=== PATIENT | male | born 1970 | race Caucasian/White ===

== ENCOUNTER 2016-09-19 00:47 | Emergency (ER) | payer BC ==
[2016-09-19 00:53] VITALS: BP 110/67; PULSE 75; RESP 18; TEMP 97.1
[2016-09-19] MEDS ORDERED: RX INFO: IV CONTRAST WAS GIVEN 1 EACH MISC MISCELLANE PRN (01:06)
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
[2016-09-19 01:11] LABS: Glucose,Whole Blood 97 mg/dL (75-99)
[2016-09-19 01:19] LABS: Basophils # (A) 0.1 k/uL (0-0.2); Basophils % (A) 1 %; CH 33.3; CHCM 34.4; Eosinophils # (A) 0.6 k/uL (0-0.7); Eosinophils % (A) 4 %; HCT 43.7 % (39.0-53.0); HDW 2.44; Luc # (Auto) 0.22; Luc % (Auto) 1; Lymphocytes # (A) 2.4 k/uL (1.0-4.8); Lymphocytes % (A) 16 %; MCH 33.4 pg (25.0-35.0); MCHC 34.2 g/dL (31.0-37.0); MCV 97.6 fL (80.0-100.0); Mean Platelet Volume 7.1; Monocytes # (A) 0.8 k/uL (0-1.0); Monocytes % (A) 5 %; Neutrophils % (A) 72 %; RBC 4.48 m/uL (4.30-5.90); RDW 13.8 % (11.5-15.5); WBC 15.2 k/uL (3.8-10.6); WBC (Perox) 14.53
[2016-09-19 01:24] LABS: ALT 25 U/L (21-72); AST 35 U/L (17-59); Alkaline Phosphatase 68 U/L (38-126); Amylase 34 U/L (30-110); Anion Gap 14 mmol/L; Blood Urea Nitrogen 11 mg/dL (9-20); Calcium 9.3 mg/dL (8.4-10.2); Carbon Dioxide 21 mmol/L (22-30); Chloride 108 mmol/L (98-107); Glucose 90 mg/dL (74-99); Non-African American GFR(MDRD) >60 (>60 ml/min/1.73 sqM); Potassium 3.8 mmol/L (3.5-5.1); Sodium 143 mmol/L (137-145); Total Bilirubin 0.2 mg/dL (0.2-1.3); Total Protein 7.2 g/dL (6.3-8.2)
[2016-09-19 01:27] LABS: Partial Thromboplastin Time 23.5 sec (22.0-30.0); Prothrombin Time 10.2 sec (9.0-12.0)
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
[2016-09-19 01:37] LABS: Alcohol 159 mg/dL
[2016-09-19 01:44] LABS: Creatine Kinase MB 1.5 ng/mL (0.0-2.4); Troponin I <0.012 ng/mL (0.000-0.034)
[2016-09-19 01:45] LABS: Creatine Kinase 137 U/L (55-170)
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
[2016-09-19] MEDS ORDERED: KETOROLAC 60 MG/2 ML VIAL IVP STA (02:09)
[2016-09-19] MEDS ORDERED: ONDANSETRON 4 MG/2 ML VIAL IVP STA (02:09)
[2016-09-19] MEDS ORDERED: HYDROmorphone 1 MG/ML 1 ML SYRINGE IVP STA (02:09)
== END 2016-09-19 02:25 | disposition home or self-care (01) ==
LOC: EC 00:47
DX: S30.1XXA Contusion of abdominal wall, initial encounter (principal); S40.211A Abrasion of right shoulder, initial encounter; F10.129 Alcohol abuse with intoxication, unspecified; M54.2 Cervicalgia; M25.551 Pain in right hip; F17.200 Nicotine dependence, unspecified, uncomplicated; Z90.49 Acquired absence of other specified parts of digestive tract; V86.09XA Driver of other special all-terrain or other off-road motor vehicle injured in traffic accident, initial encounter
CPT/HCPCS: 36415; 93005; 86900; 86901; 80053; 82150; 82550; 82553; 83605; 83690; 84484; 85025; 85610; 85730; 86850; 80320; 71010; 72170; 72125; 70450; 71260; 74177; 99284; Q9967

== ENCOUNTER 2016-09-22 04:33 | Inpatient (IN) | payer BC ==
[2016-09-22] MEDS ORDERED: RX INFO: IV CONTRAST WAS GIVEN 1 EACH MISC MISCELLANE PRN (04:51)
[2016-09-22] MEDS ORDERED: HYDROmorphone 1 MG/ML 1 ML SYRINGE IVP STA ×2 (04:51→07:08)
[2016-09-22] MEDS ORDERED: ONDANSETRON 4 MG/2 ML VIAL IVP STA (04:51)
[2016-09-22] MEDS ORDERED: SODIUM CHLORIDE 0.9% 1,000 ML IV STA (04:51)
[2016-09-22] MEDS ORDERED: SODIUM CHLORIDE 0.9% 500 ML IV STA (04:51)
[2016-09-22 05:28] LABS: Basophils # (A) 0.1 k/uL (0-0.2); Basophils % (A) 1 %; CH 32.9; CHCM 34.5; Eosinophils # (A) 0.6 k/uL (0-0.7); Eosinophils % (A) 7 %; HCT 39.9 % (39.0-53.0); HDW 2.42; HGB 13.9 gm/dL (13.0-17.5); Luc # (Auto) 0.18; Luc % (Auto) 2; Lymphocytes # (A) 2.7 k/uL (1.0-4.8); Lymphocytes % (A) 29 %; MCH 33.2 pg (25.0-35.0); MCHC 34.7 g/dL (31.0-37.0); MCV 95.7 fL (80.0-100.0); Mean Platelet Volume 6.5; Monocytes # (A) 0.6 k/uL (0-1.0); Monocytes % (A) 6 %; Neutrophils # (A) 5.3 k/uL (1.3-7.7); Neutrophils % (A) 56 %; RBC 4.17 m/uL (4.30-5.90); RDW 13.1 % (11.5-15.5); WBC 9.4 k/uL (3.8-10.6); WBC (Perox) 9.66
[2016-09-22 05:34] LABS: ALT 27 U/L (21-72); AST 24 U/L (17-59); Alkaline Phosphatase 76 U/L (38-126); Amylase <30 U/L (30-110); Anion Gap 13 mmol/L; Blood Urea Nitrogen 13 mg/dL (9-20); Calcium 8.8 mg/dL (8.4-10.2); Carbon Dioxide 18 mmol/L (22-30); Chloride 112 mmol/L (98-107); Glucose 71 mg/dL (74-99); Non-African American GFR(MDRD) >60 (>60 ml/min/1.73 sqM); Potassium 4.3 mmol/L (3.5-5.1); Sodium 143 mmol/L (137-145); Total Bilirubin 0.3 mg/dL (0.2-1.3); Total Protein 6.6 g/dL (6.3-8.2)
[2016-09-22] MEDS ORDERED: HYDROmorphone 1 MG/ML 1 ML SYRINGE IVP PRN ×2 (06:19→07:07)
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
[2016-09-22] MEDS ORDERED: KETOROLAC 30 MG/ML 1 ML VIAL IVP STA (06:58)
[2016-09-22] MEDS ORDERED: SODIUM CHLORIDE 0.9% 1,000 ML IV ONE (07:05)
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
[2016-09-22] MEDS ORDERED: fentaNYL (PF) 50 MCG/ML 2 ML AMP ONE (07:55)
[2016-09-22] MEDS ORDERED: LIDOCAINE 1% INJ 10MG/ML (20 ML MDV) ONE (07:55)
[2016-09-22] MEDS ORDERED: PROPOFOL 10 MG/ML 20 ML VIAL IV ONE (07:55)
[2016-09-22] MEDS ORDERED: IV FLUID CONTINUATION 1,000 ML IV ONE (07:55)
[2016-09-22] MEDS ORDERED: MIDAZOLAM 2 MG/2 ML VIAL ONE (07:55)
[2016-09-22] MEDS ORDERED: SUCCINYLCHOLINE CHLORIDE 100 MG/5 ML SYR IV ONE (07:55)
[2016-09-22] MEDS ORDERED: ONDANSETRON 4 MG/2 ML VIAL ONE (07:55)
[2016-09-22] MEDS ORDERED: LACTATED RINGERS 1,000 ML IV ONE (08:10)
[2016-09-22] MEDS ORDERED: SODIUM CHLORIDE 0.9% 50 ML with ceFAZolin 2,000 MG IV ONE ×2 (08:11)
[2016-09-22] MEDS ORDERED: ONDANSETRON 4 MG/2 ML VIAL IVP PRN (09:01)
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
--- NOTE | 2016-09-22 09:12 | P.DS ---
Providers Date of admission: 09/22/16 07:07 Expected date of discharge: 09/23/16 Attending physician: Patrica Clinton Primary care physician: Ravi Mccracken - Discharge Diagnosis(es) (1) Right flank hematoma Current Visit: Yes Status: Acute Hospital Course: 46 years old male presented with expanding right flank hematoma. Underwent surgical evacuation and closure. Patient did well in the postoperative period. Pain is well controlled. He is taking regular diet. Patient Condition at Discharge: Fair Plan - Discharge Summary New Discharge Prescriptions: New Docusate [Colace] 100 mg PO BID #30 capsule Hydrocodone/Acetaminophen [[place] 5-325] 1 each PO Q6HR PRN #10 tab PRN Reason: Pain No Action Sertraline [Zoloft] 50 mg PO DAILY Triamcinolone 0.1% Ointment [Kenalog] 1 applic TOPICAL BID Discharge Medication List Docusate [Colace] 100 mg PO BID #30 capsule 09/22/16 [Rx] Hydrocodone/Acetaminophen [[place] 5-325] 1 each PO Q6HR PRN #10 tab 09/22/16 [Rx] Sertraline [Zoloft] 50 mg PO DAILY 09/22/16 [History] Triamcinolone 0.1% Ointment [Kenalog] 1 applic TOPICAL BID 09/22/16 [History] Follow up Appointment(s)/Referral(s): Patrica Clinton MD [STAFF PHYSICIAN] - 10/01/16 Ravi Mccracken DO [Primary Care Provider] - 1-2 days Activity/Diet/Wound Care/Special Instructions: OK to shower . No soaking bath. No heavy lifting more than 10 lbs for 2 weeks post surgery. No driving while taking narcotics for pain. May use ice packs for local pain relief Take Motrin 400 mg po TID after meals if pain is not controlled Discharge Disposition: HOME SELF-CARE
[2016-09-22 09:47] VITALS: BMI 25.1
[2016-09-22] MEDS ORDERED: ACETAMINOPHEN TAB 325 MG TAB PO PRN (11:32)
[2016-09-22] MEDS: HYDROcodone/APAP 5-325MG 1 EACH TAB PO PRN ×3 (13:22→22:00)
[2016-09-22] MEDS: DOCUSATE 100 MG CAP PO SCH ×2 (13:26→19:57)
[2016-09-22 23:58] VITALS: RESP 16
[2016-09-23] MEDS ORDERED: PANTOPRAZOLE SODIUM 40 MG GRANULE PKT PO SCH (07:30)
[2016-09-23] MEDS: DOCUSATE 100 MG CAP PO SCH (08:13)
[2016-09-23 12:18] VITALS: BP 120/61; PULSE 91; TEMP 98
== END 2016-09-23 14:02 | disposition home or self-care (01) | DRG 580 ==
LOC: EC 04:33 → 3SUR 07:07
PROVIDERS: ADMIT Surgery; ATTEND Surgery
PROC: 0W3F0ZZ Control Bleeding in Abdominal Wall, Open Approach (ICD-10-PCS; 2016-09-22)
PROC: 0J980ZZ Drainage of Abdomen Subcutaneous Tissue and Fascia, Open Approach (ICD-10-PCS; principal; 2016-09-22 07:30)
DX: S30.1XXA Contusion of abdominal wall, initial encounter (principal); T80.818A Extravasation of other vesicant agent, initial encounter; F17.200 Nicotine dependence, unspecified, uncomplicated; R21 Rash and other nonspecific skin eruption; Z79.899 Other long term (current) drug therapy; Z90.49 Acquired absence of other specified parts of digestive tract; Z86.010 Personal history of colon polyps; V86.99XA Unspecified occupant of other special all-terrain or other off-road motor vehicle injured in nontraffic accident, initial encounter
CPT/HCPCS: 36415; 74177; 80053; 82150; 83605; 83690; 85025

== ENCOUNTER 2016-09-26 12:21 | Emergency (ER) | payer BC ==
[2016-09-26 12:35] VITALS: RESP 18
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
[2016-09-26] MEDS ORDERED: RX INFO: IV CONTRAST WAS GIVEN 1 EACH MISC MISCELLANE PRN (12:49)
[2016-09-26 13:11] LABS: Basophils % (A) 0 %; CH 33.4; CHCM 34.2; Eosinophils # (A) 1.1 k/uL (0-0.7); Eosinophils % (A) 14 %; HCT 40.2 % (39.0-53.0); HDW 2.56; HGB 13.7 gm/dL (13.0-17.5); Luc # (Auto) 0.09; Luc % (Auto) 1; Lymphocytes # (A) 1.1 k/uL (1.0-4.8); Lymphocytes % (A) 14 %; MCH 33.5 pg (25.0-35.0); MCHC 34.1 g/dL (31.0-37.0); MCV 98.3 fL (80.0-100.0); Mean Platelet Volume 7.3; Monocytes # (A) 0.4 k/uL (0-1.0); Monocytes % (A) 5 %; Neutrophils % (A) 65 %; RBC 4.09 m/uL (4.30-5.90); RDW 14.3 % (11.5-15.5); WBC 7.7 k/uL (3.8-10.6); WBC (Perox) 7.91
--- NOTE | 2016-09-26 13:49 | CT ---
EXAMINATION TYPE: CT abdomen w con DATE OF EXAM: 09/26/2016 COMPARISON: 09/22/2016 HISTORY: Patient complains of RUQ hematoma that was drained 4 days ago. Hematoma feels as if it is g rowing and refilling. CT DLP: 841 mGycm CONTRAST: CT scan of the abdomen is performed without Oral Contrast and with IV Contrast, patient injected wit h 100 mL of Omnipaque 300. FINDINGS: Subcutaneous right lateral flank hematoma is smaller in size and currently measures 6.8 x 2.1 x 8.9 c m versus 9.2 x 5.2 x 10.7 cm. In addition Hounsfield unit density values are within the range of norm al fluid without hyperdense component seen previously which indicated active hemorrhage at time of in itial presentation. LUNG BASES-: Mild dependent basilar atelectasis and trace effusions. LIVER/GB: Cholecystectomy clips noted. No space occupying hepatic lesion. Biliary tree is of zane l caliber. PANCREAS: No inflammation. No distinct mass. SPLEEN: No splenic enlargement. No lesion seen. ADRENALS: No nodule. No thickening. KIDNEYS/BLADDER: Malrotation left kidney. No hydronephrosis. No nephrolithiasis. Stable right renal cyst. Urinary bladder grossly unremarkable. BOWEL: Normal appendix. Normal bowel caliber. No inflammation. LYMPH NODES: No greater than 1cm abdominal or pelvic lymph nodes are appreciated. AORTA: No significant abnormality. OSSEOUS STRUCTURES: No significant abnormality is seen. OTHER: No significant additional abnormality is seen. IMPRESSION: 1. Persistent but smaller subcutaneous right lateral flank collection which may reflect interval deve lopment of seroma versus residual hematoma.
[2016-09-26 14:37] VITALS: BP 127/81; PULSE 67
[2016-09-26 14:56] VITALS: TEMP 98.3
== END 2016-09-26 14:56 | disposition home or self-care (01) ==
LOC: EC 12:21
DX: S30.1XXD Contusion of abdominal wall, subsequent encounter (principal); F17.200 Nicotine dependence, unspecified, uncomplicated; Z90.49 Acquired absence of other specified parts of digestive tract; Z79.891 Long term (current) use of opiate analgesic; Z79.1 Long term (current) use of non-steroidal anti-inflammatories (NSAID); Z98.890 Other specified postprocedural states; Z79.899 Other long term (current) drug therapy; Y93.89 Activity, other specified
CPT/HCPCS: 99283; 36415; 85025; 74160; Q9967

== ENCOUNTER 2020-09-18 05:57 | Emergency (ER) | payer BC, OTHER ==
[2020-09-18 06:04] VITALS: TEMP 98.2
[2020-09-18] MEDS ORDERED: SODIUM CHLORIDE 0.9% 1,000 ML IV STA (06:16)
[2020-09-18] MEDS ORDERED: KETOROLAC 15 MG/ML 1 ML VIAL IVP STA (06:16)
--- NOTE | 2020-09-18 06:32 | ED ---
General Adult HPI - General Chief complaint: Back Pain/Injury Stated complaint: Side Pain Time Seen by Provider: 09/18/20 06:10 Source: patient, family Mode of arrival: ambulatory Limitations: no limitations - History of Present Illness Initial comments: Patient is a 50-year-old male presenting to emergency Department with complaints of left flank pain been increasing over the past few days. He states he noticed that a little bit last week but then over the past 24 hours the pain has increased. Describes it as his left flank with some radiation towards the front. He denies history of kidney stones, no hematuria. He denies fevers or chills, no chest pain or shortness of breath. Does admit to some mild nausea but no vomiting, no diarrhea. He has no further complaints. - Related Data Home Medications Medication Instructions Recorded Confirmed Hydrocodone/Acetaminophen [[place] 1 tab PO HS 09/26/16 09/26/16 5-325] Ibuprofen [Motrin] 600 mg PO BID 09/26/16 09/26/16 diphenhydrAMINE [Benadryl] 50 mg PO BID 09/26/16 09/26/16 Previous Rx's Medication Instructions Recorded Lidocaine [Lidoderm 5% Patch] 1 patch TRANSDERM DAILY #5 patch 09/18/20 valACYclovir HCL [Valtrex] 1,000 mg PO Q8HR 7 Days #21 tab 09/18/20 Allergies Allergy/AdvReac Type Severity Reaction Status Date / Time No Known Allergies Allergy Verified 09/18/20 06:04 Review of Systems ROS Statement: Those systems with pertinent positive or pertinent negative responses have been documented in the HPI. ROS Other: All systems not noted in ROS Statement are negative. Past Medical History Past Medical History: GI Bleed, Skin Disorder Additional Past Medical History / Comment(s): RASH LOWER BACK PAST 6 MO EST, POSS ALLERGY TO COTTON, SEEING VEGETABLE SCULLION. HX COLON POLYPS. BLOOD IN STOOL IN PAST MONTH. History of Any Multi-Drug Resistant Organisms: None Reported Past Surgical History: Cholecystectomy Additional Past Surgical History / Comment(s): COLONOSCOPY Past Anesthesia/Blood Transfusion Reactions: No Reported Reaction Past Psychological History: No Psychological Hx Reported Smoking Status: Current every day smoker Past Alcohol Use History: Occasional Past Drug Use History: None Reported - Past Family History Mother Family Medical History: No Reported History General Exam - General Exam Comments Initial Comments: GENERAL: Patient is well-developed and well-nourished. Patient is nontoxic and in mild distress. HEAD: Atraumatic, normocephalic. EYES: Pupils equal round and reactive to light, extraocular movements intact, sclera anicteric, conjunctiva are normal. Eyelids were unremarkable. ENT: Nares patent, oropharynx clear without exudates. Moist mucous membranes. NECK: Normal range of motion, supple without lymphadenopathy or JVD. LUNGS: Unlabored respirations. Breath sounds clear to auscultation bilaterally and equal. No wheezes rales or rhonchi. HEART: Regular rate and rhythm without murmurs, rubs or gallops. ABDOMEN: Soft, nontender, normoactive bowel sounds. No guarding, no rebound. No masses appreciated. : Deferred MUSCULOSKELETAL: Normal extremities with adequate strength and normal range of motion, no pitting or edema. No clubbing or cyanosis. Mild tenderness to palpation of the left flank. NEUROLOGICAL: Patient is alert and oriented x 3. Motor and sensory are also intact. Normal speech, normal gait. PSYCH: Normal mood, normal affect. SKIN: Warm, Dry, normal turgor. Patient does have a mild macular, papular rash along the T7, T8 dermatome on the left side just near the left flank which does wrap around towards his front. Limitations: no limitations Course Vital Signs 09/18/20 09/18/20 05:59 07:34 Temperature 98.2 F Pulse Rate 70 66 Respiratory 20 18 Rate Blood Pressure 168/96 145/103 O2 Sat by Pulse 99 97 Oximetry Medical Decision Making - Medical Decision Making Patient is a 50-year-old male here with complaints of pain in his left flank pain increasing over the past week, worse over the past 24 hours. On physical e xam, he does have a rash along this area, along dermatome T7 to 8. I did evaluate him for possible kidney stone, he has no hematuria, his labs are within normal limits, CT shows no evidence for stone. I discussed with patient this is most likely shingles. I will start him on Valtrex, Lidoderm patches. He is stable for discharge. He'll follow up with his PCP. He is agreeable to this plan of care. Return parameters were discussed with him and he verbalized understanding. Case discussed with Dr. Felipe. - Lab Data Result diagrams: 09/18/20 06:19 09/18/20 06:19 Lab Results 09/18/20 09/18/20 09/18/20 Range/Units 06:19 06:19 06:19 WBC 7.7 (3.8-10.6) k/uL RBC 4.72 (4.30-5.90) m/uL Hgb 15.6 (13.0-17.5) gm/dL Hct 44.6 (39.0-53.0) % MCV 94.6 (80.0-100.0) fL MCH 33.0 (25.0-35.0) pg MCHC 34.9 (31.0-37.0) g/dL RDW 13.0 (11.5-15.5) % Plt Count 239 (150-450) k/uL MPV 7.0 Neutrophils % 55 % Lymphocytes % 28 % Monocytes % 5 % Eosinophils % 9 % Basophils % 1 % Neutrophils # 4.3 (1.3-7.7) k/uL Lymphocytes # 2.1 (1.0-4.8) k/uL Monocytes # 0.4 (0-1.0) k/uL Eosinophils # 0.7 (0-0.7) k/uL Basophils # 0.1 (0-0.2) k/uL Sodium 138 (137-145) mmol/L Potassium 4.3 (3.5-5.1) mmol/L Chloride 109 H (98-107) mmol/L Carbon Dioxide 24 (22-30) mmol/L Anion Gap 5 mmol/L BUN 13 (9-20) mg/dL Creatinine 0.84 (0.66-1.25) mg/dL Est GFR (CKD-EPI)AfAm >90 (>60 ml/min/1.73 sqM) Est GFR (CKD-EPI)NonAf >90 (>60 ml/min/1.73 sqM) Glucose 102 H (74-99) mg/dL Calcium 9.4 (8.4-10.2) mg/dL Total Bilirubin 0.3 (0.2-1.3) mg/dL AST 24 (17-59) U/L ALT 9 (4-49) U/L Alkaline Phosphatase 54 (38-126) U/L Total Protein 6.6 (6.3-8.2) g/dL Albumin 4.1 (3.5-5.0) g/dL Lipase 64 (23-300) U/L Urine Color Light Yellow Urine Appearance Clear (Clear) Urine pH 5.5 (5.0-8.0) Ur Specific [place] 1.010 (1.001-1.035) Urine Protein Negative (Negative) Urine Glucose (UA) Negative (Negative) Urine Ketones Negative (Negative) Urine Blood Negative (Negative) Urine Nitrite Negative (Negative) Urine Bilirubin Negative (Negative) Urine Urobilinogen <2.0 (<2.0) mg/dL Ur Leukocyte Esterase Negative (Negative) Disposition Clinical Impression: Shingles, Left flank pain Disposition: HOME SELF-CARE Condition: Stable Instructions (If sedation given, give patient instructions): Shingles (ED) Additional Instructions: Please return to the Emergency Department if symptoms worsen or any other concerns. Take medication as prescribed, use lidocaine patches as needed for discomfort, alternating between Tylenol and Motrin. May take Tylenol threes for more severe pain. Follow up with your PCP. Prescriptions: Lidocaine [Lidoderm 5% Patch] 1 patch TRANSDERM DAILY #5 patch valACYclovir HCL [Valtrex] 1,000 mg PO Q8HR 7 Days #21 tab Is patient prescribed a controlled substance at d/c from ED?: No Referrals: Nonstaff,Physician [Primary Care Provider] - 1-2 days Time of Disposition: 08:27
[2020-09-18 06:34] LABS: Basophils # (A) 0.1 k/uL (0-0.2); Basophils % (A) 1 %; Eosinophils # (A) 0.7 k/uL (0-0.7); Eosinophils % (A) 9 %; HCT 44.6 % (39.0-53.0); HGB 15.6 gm/dL (13.0-17.5); Lymphocytes # (A) 2.1 k/uL (1.0-4.8); Lymphocytes % (A) 28 %; MCHC 34.9 g/dL (31.0-37.0); MCV 94.6 fL (80.0-100.0); Monocytes # (A) 0.4 k/uL (0-1.0); Monocytes % (A) 5 %; Neutrophils # (A) 4.3 k/uL (1.3-7.7); Neutrophils % (A) 55 %; Platelet Count 239 k/uL (150-450); RBC 4.72 m/uL (4.30-5.90); WBC 7.7 k/uL (3.8-10.6)
[2020-09-18 06:36] LABS: Appearance,Urine Clear (Clear); Bilirubin,Urine Negative (Negative); Blood,Urine Negative (Negative); Color,Urine Light Yellow; Glucose,Urine (UA) Negative (Negative); Ketones,Urine Negative (Negative); Leukocyte Esterase,Urine Negative (Negative); Nitrite,Urine Negative (Negative); PH, Urine 5.5 (5.0-8.0); Protein,Urine Negative (Negative); Urobilinogen,Urine <2.0 mg/dL (<2.0)
[2020-09-18 06:48] LABS: ALT 9 U/L (4-49); AST 24 U/L (17-59); African American GFR (CKD) >90 (>60 ml/min/1.73 sqM); Albumin 4.1 g/dL (3.5-5.0); Alkaline Phosphatase 54 U/L (38-126); Anion Gap 5 mmol/L; Blood Urea Nitrogen 13 mg/dL (9-20); Calcium 9.4 mg/dL (8.4-10.2); Carbon Dioxide 24 mmol/L (22-30); Chloride 109 mmol/L (98-107); Glucose 102 mg/dL (74-99); Lipase 64 U/L (23-300); Non-African American GFR(CKD) >90 (>60 ml/min/1.73 sqM); Potassium 4.3 mmol/L (3.5-5.1); Sodium 138 mmol/L (137-145); Total Bilirubin 0.3 mg/dL (0.2-1.3); Total Protein 6.6 g/dL (6.3-8.2)
[2020-09-18 07:35] VITALS: BP 145/103; PULSE 66; RESP 18
[2020-09-18] MEDS ORDERED: MORPHINE SULFATE 4 MG/ML SYRINGE IVP STA (08:02)
--- NOTE | 2020-09-18 08:09 | CT ---
EXAM: CT Abdomen and Pelvis Without Intravenous Contrast CLINICAL HISTORY: ITS.REASON CT Reason: left flank pain TECHNIQUE: Axial computed tomography images of the abdomen and pelvis without intravenous contrast. CTDI is 10 mGy and DLP is 617.8 mGy-cm. This CT exam was performed using one or more of the following dose reduction techniques: automated exposure control, adjustment of the mA and/or kV according to patient size, and/or use of iterative reconstruction technique. COMPARISON: 09/22/2016 FINDINGS: Lung bases: Unremarkable. No mass. No consolidation. ABDOMEN: Liver: Unremarkable. Gallbladder and bile ducts: Surgically absent. No ductal dilation. Pancreas: Unremarkable. No ductal dilation. Spleen: Unremarkable. No splenomegaly. Adrenals: Unremarkable. No mass. Kidneys and ureters: Unremarkable. No obstructing stones. No hydronephrosis. Stomach and bowel: Unremarkable. No obstruction. No mucosal thickening. PELVIS: Appendix: No findings to suggest acute appendicitis. Bladder: Unremarkable. No stones. Reproductive: Unremarkable as visualized. ABDOMEN and PELVIS: Intraperitoneal space: Unremarkable. No free air. No significant fluid collection. Bones/joints: No acute fracture. No dislocation. Soft tissues: Unremarkable. Vasculature: Mild calcific atherosclerotic plaque of the infrarenal abdominal aorta and bilateral common iliac artery branches.. No abdominal aortic aneurysm. Lymph nodes: Unremarkable. No enlarged lymph nodes. IMPRESSION: No acute intra-abdominal process.
[2020-09-18] MEDS ORDERED: ACET/COD 300 MG/30 MG STARTER PACK 6 TAB BTL PO STA (08:27)
== END 2020-09-18 08:39 | disposition home or self-care (01) ==
LOC: EC 05:57
DX: B02.9 Zoster without complications (principal); F17.200 Nicotine dependence, unspecified, uncomplicated
CPT/HCPCS: 36415; 80053; 83690; 85025; 81003; 74176; 99284; 96374; 96375; 96361 ×2; J2270; J1885

== ENCOUNTER 2021-11-15 07:41 | Day surgery (SDC) | payer OTHER ==
[~2021-11-15 07:41] MED LIST: LACTATED RINGERS 1,000 ML IV SCH
[2021-11-15 08:18] VITALS: TEMP 96.9
[2021-11-15] MEDS ORDERED: LIDOCAINE 2% INJ 20 MG/ML (2 ML VIAL) ONE (08:41)
[2021-11-15] MEDS ORDERED: PROPOFOL 10 MG/ML 20 ML VIAL IV ONE (08:41)
--- NOTE | 2021-11-15 08:45 | P.GSHP ---
History of Present Illness H&P Date: 11/15/21 Chief Complaint: GI Bleed This a 51-year-old male presents today for colonoscopy. Patient history of rectal bleeding. Past Medical History Past Medical History: GERD/Reflux, GI Bleed, Osteoarthritis (OA), Skin Disorder Additional Past Medical History / Comment(s): HX COLON POLYPS. RASH, SOB FROM HYDROCODONE POST -OP ON 11/09/21 History of Any Multi-Drug Resistant Organisms: None Reported Past Surgical History: Cholecystectomy Additional Past Surgical History / Comment(s): GANGLION CYST AND BONE FRAGMENT REMOVED LEFT ON 11/09/20 @ OA. COLONOSCOPY Past Anesthesia/Blood Transfusion Reactions: No Reported Reaction Past Psychological History: No Psychological Hx Reported Smoking Status: Current every day smoker Past Alcohol Use History: Occasional Additional Past Alcohol Use History / Comment(s): SMOKES 1 PPD, 25 YEARS. Past Drug Use History: None Reported - Past Family History Mother Family Medical History: No Reported History Medications and Allergies Home Medications Medication Instructions Recorded Confirmed Type Ibuprofen [Motrin] 600 mg PO BID 09/26/16 11/15/21 History Esomeprazole Magnesium [NexIUM 20 ng PO QAM 11/13/21 11/15/21 History 24Hr] Allergies Allergy/AdvReac Type Severity Reaction Status Date / Time hydrocodone Allergy Rash/Hives, Verified 11/15/21 08:18 SOB Surgical - Exam Vital Signs Temp Pulse Resp BP Pulse Ox 96.9 F L 78 16 134/78 99 11/15/21 08:09 11/15/21 08:09 11/15/21 08:09 11/15/21 08:09 11/15/21 08:09 - General well developed, well nourished, no distress - Eyes PERRL - ENT normal pinna - Neck no masses - Respiratory normal expansion - Cardiovascular Rhythm: regular - Abdomen Abdomen: soft, non tender Assessment and Plan Assessment: GI bleed. We'll perform colonoscopy.
--- NOTE | 2021-11-15 08:59 | P.OP ---
Date of Procedure: 11/15/21 Preoperative Diagnosis: GI bleed Postoperative Diagnosis: Right colon polyp Rectal polyp Procedure(s) Performed: Colonoscopy Anesthesia: MAC Surgeon: Mj Stern Pathology: other (Right colon polyp, rectal polyp) Condition: stable Disposition: PACU Description of Procedure: The patient's placed on the endoscopy table in the lateral position he received IV sedation. Digital rectal exam was performed. This revealed no ebonized. The flexible colonoscope was then placed patient anus passed throughout the entire colon. The ileocecal valve was visualized. In the right colon there was a small sessile polyp was removed the cold forcep. Scope was then withdrawn and the remainder the ascending and transverse colon appeared normal. The descending and sigmoid colon appeared normal. Scope was brought back the rectum and another small sessile polyp was seen. This removed the cold forcep. The scope was withdrawn for patient.
[2021-11-15 09:17] VITALS: BP 119/80; PULSE 79; RESP 16
== END 2021-11-15 09:53 | disposition home or self-care (01) ==
LOC: ORWHC2ENDO 07:41
PROVIDERS: ATTEND Surgery
DX: D12.6 Benign neoplasm of colon, unspecified (principal); K62.1 Rectal polyp; K92.2 Gastrointestinal hemorrhage, unspecified; K21.9 Gastro-esophageal reflux disease without esophagitis; M19.90 Unspecified osteoarthritis, unspecified site; L98.9 Disorder of the skin and subcutaneous tissue, unspecified; R21 Rash and other nonspecific skin eruption; R06.02 Shortness of breath; F17.210 Nicotine dependence, cigarettes, uncomplicated; F10.99 Alcohol use, unspecified with unspecified alcohol-induced disorder; Z90.89 Acquired absence of other organs; Z87.39 Personal history of other diseases of the musculoskeletal system and connective tissue; Z79.899 Other long term (current) drug therapy; Z88.5 Allergy status to narcotic agent
CPT/HCPCS: 88305; 45380; J2704; J2001

== ENCOUNTER 2022-01-15 13:35 | Emergency (ER) | payer BC, OTHER ==
[2022-01-15] MEDS ORDERED: SODIUM CHLORIDE 0.9% 1,000 ML IV STA (14:43)
[2022-01-15] MEDS ORDERED: fentaNYL (PF) 50 MCG/ML 2 ML AMP IVP STA (14:44)
--- NOTE | 2022-01-15 14:53 | ED ---
Abdominal Pain HPI - General Source: patient, family, RN notes reviewed, old records reviewed Mode of arrival: ambulatory Limitations: no limitations - History of Present Illness MD Complaint: abdominal pain Location: LLQ Radiation: other (left testicle) Severity scale (1-10): 8 Consistency: constant Context: other (Motrin in ambulation) Associated Symptoms: denies other symptoms Treatments Prior to Arrival: NSAIDs <Jimi Moraes - Last Filed: 01/15/22 16:31> <Tom Jefferson - Last Filed: 01/15/22 17:46> - General Chief Complaint: Abdominal Pain Stated Complaint: Abd pain Time Seen by Provider: 01/15/22 14:30 - History of Present Illness Initial Comments: 51-year-old well-appearing patient presents to the emergency room with left lower quadrant abdominal pain radiating into his groin and left testicle for the past 2-3 days. Some relief with Motrin. Denies any fevers, nausea vomiting or diarrhea. Denies any dysuria, hematuria or penile discharge. 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 (Jimi Moraes) - Related Data Home Medications Medication Instructions Recorded Confirmed Esomeprazole Magnesium [NexIUM 20 ng PO DAILY 11/13/21 01/15/22 24Hr] Ibuprofen [Motrin Ib] 800 mg PO Q6H PRN 01/15/22 01/15/22 Allergies Allergy/AdvReac Type Severity Reaction Status Date / Time hydrocodone Allergy Rash/Hives, Verified 01/15/22 16:52 SOB Review of Systems ROS Other: All systems not noted in ROS Statement are negative. <Jimi Moraes - Last Filed: 01/15/22 16:31> ROS Other: All systems not noted in ROS Statement are negative. <Tom Jefferson - Last Filed: 01/15/22 17:46> ROS Statement: Those systems with pertinent positive or pertinent negative responses have been documented in the HPI. Past Medical History Past Medical History: GERD/Reflux, GI Bleed, Osteoarthritis (OA), Skin Disorder Additional Past Medical History / Comment(s): HX COLON POLYPS. RASH, SOB FROM HYDROCODONE POST -OP ON 11/09/21 History of Any Multi-Drug Resistant Organisms: None Reported Past Surgical History: Cholecystectomy Additional Past Surgical History / Comment(s): GANGLION CYST AND BONE FRAGMENT REMOVED LEFT ON 11/09/20 @ OA. COLONOSCOPY Past Anesthesia/Blood Transfusion Reactions: No Reported Reaction Past Psychological History: No Psychological Hx Reported Smoking Status: Current every day smoker Past Alcohol Use History: Occasional Past Drug Use History: None Reported - Past Family History Mother Family Medical History: No Reported History <Jimi Moraes - Last Filed: 01/15/22 16:31> General Exam Limitations: no limitations General appearance: alert, in no apparent distress Head exam: Present: atraumatic Eye exam: Absent: scleral icterus, conjunctival injection, periorbital swelling Respiratory exam: Absent: respiratory distress, accessory muscle use Cardiovascular Exam: Present: regular rate GI/Abdominal exam: Present: soft, tenderness (Left lower quadrant). Absent: distended, rigid exam: Present: normal inspection, testicular tenderness (Left), vertical testicular lie, circumcision. Absent: urethral discharge, scrotal swelling Extremities exam: Present: full ROM, normal capillary refill. Absent: tenderness, calf tenderness Back exam: Present: full ROM. Absent: tenderness, CVA tenderness (R), CVA tenderness (L) Neurological exam: Present: alert, oriented X3, normal gait Psychiatric exam: Present: normal affect, normal mood Skin exam: Present: warm, normal color. Absent: cyanosis, diaphoretic, petechiae, pallor <Jimi Moraes - Last Filed: 01/15/22 16:31> Course Vital Signs 01/15/22 13:37 Temperature 98.6 F Pulse Rate 77 Respiratory 20 Rate Blood Pressure 156/89 O2 Sat by Pulse 100 Oximetry Medical Decision Making - Lab Data Result diagrams: 01/15/22 15:17 01/15/22 15:17 <Jimi Moraes - Last Filed: 01/15/22 16:31> - Lab Data Result diagrams: 01/15/22 15:17 01/15/22 15:17 <Tom Jefferson - Last Filed: 01/15/22 17:46> - Medical Decision Making Scrotal ultrasound shows no suspicious decreased or increased blood flow to the left testicle. CBC and electrolytes are unremarkable. Awaiting urinalysis. Patient continues to have pain and therefore CT was or dered. Case was signed out to Dr. Jefferson. (Jimi Moraes) Patient presented with left groin pain. Urinalysis is negative. All the labs are normal. Ultrasound is unremarkable. CT abdomen and pelvis shows no evidence of acute emergency. There is no evidence of any acute emergency throughout this patient's entire workup. He is tolerating oral intake. He is stable for discharge. (Tom Jefferson) - Lab Data Lab Results 01/15/22 01/15/22 01/15/22 Range/Units 15:17 15:17 15:17 WBC 6.2 (3.8-10.6) k/uL RBC 4.34 (4.30-5.90) m/uL Hgb 14.6 (13.0-17.5) gm/dL Hct 42.2 (39.0-53.0) % MCV 97.2 (80.0-100.0) fL MCH 33.7 (25.0-35.0) pg MCHC 34.7 (31.0-37.0) g/dL RDW 12.6 (11.5-15.5) % Plt Count 276 (150-450) k/uL MPV 7.6 Neutrophils % 50 % Lymphocytes % 34 % Monocytes % 6 % Eosinophils % 7 % Basophils % 1 % Neutrophils # 3.1 (1.3-7.7) k/uL Lymphocytes # 2.1 (1.0-4.8) k/uL Monocytes # 0.4 (0-1.0) k/uL Eosinophils # 0.4 (0-0.7) k/uL Basophils # 0.1 (0-0.2) k/uL Sodium 136 L (137-145) mmol/L Potassium 5.0 (3.5-5.1) mmol/L Chloride 107 (98-107) mmol/L Carbon Dioxide 25 (22-30) mmol/L Anion Gap 4 mmol/L BUN 14 (9-20) mg/dL Creatinine 0.79 (0.66-1.25) mg/dL Est GFR (CKD-EPI)AfAm >90 (>60 ml/min/1.73 sqM) Est GFR (CKD-EPI)NonAf >90 (>60 ml/min/1.73 sqM) Glucose 86 (74-99) mg/dL Plasma Lactic Acid Baudilio (0.7-2.0) mmol/L Calcium 8.5 (8.4-10.2) mg/dL Total Bilirubin 0.6 (0.2-1.3) mg/dL AST 36 (17-59) U/L ALT 12 (4-49) U/L Alkaline Phosphatase 53 (38-126) U/L Total Protein 6.8 (6.3-8.2) g/dL Albumin 4.1 (3.5-5.0) g/dL Amylase 45 (30-110) U/L Lipase 81 (23-300) U/L Urine Color Yellow Urine Appearance Clear (Clear) Urine pH 7.0 (5.0-8.0) Ur Specific [place] 1.019 (1.001-1.035) Urine Protein Negative (Negative) Urine Glucose (UA) Negative (Negative) Urine Ketones Negative (Negative) Urine Blood Negative (Negative) Urine Nitrite Negative (Negative) Urine Bilirubin Negative (Negative) Urine Urobilinogen <2.0 (<2.0) mg/dL Ur Leukocyte Esterase Negative (Negative) 01/15/22 Range/Units 15:17 WBC (3.8-10.6) k/uL RBC (4.30-5.90) m/uL Hgb (13.0-17.5) gm/dL Hct (39.0-53.0) % MCV (80.0-100.0) fL MCH (25.0-35.0) pg MCHC (31.0-37.0) g/dL RDW (11.5-15.5) % Plt Count (150-450) k/uL MPV Neutrophils % % Lymphocytes % % Monocytes % % Eosinophils % % Basophils % % Neutrophils # (1.3-7.7) k/uL Lymphocytes # (1.0-4.8) k/uL Monocytes # (0-1.0) k/uL Eosinophils # (0-0.7) k/uL Basophils # (0-0.2) k/uL Sodium (137-145) mmol/L Potassium (3.5-5.1) mmol/L Chloride (98-107) mmol/L Carbon Dioxide (22-30) mmol/L Anion Gap mmol/L BUN (9-20) mg/dL Creatinine (0.66-1.25) mg/dL Est GFR (CKD-EPI)AfAm (>60 ml/min/1.73 sqM) Est GFR (CKD-EPI)NonAf (>60 ml/min/1.73 sqM) Glucose (74-99) mg/dL Plasma Lactic Acid Baudilio 1.2 (0.7-2.0) mmol/L Calcium (8.4-10.2) mg/dL Total Bilirubin (0.2-1.3) mg/dL AST (17-59) U/L ALT (4-49) U/L Alkaline Phosphatase (38-126) U/L Total Protein (6.3-8.2) g/dL Albumin (3.5-5.0) g/dL Amylase (30-110) U/L Lipase (23-300) U/L Urine Color Urine Appearance (Clear) Urine pH (5.0-8.0) Ur Specific [place] (1.001-1.035) Urine Protein (Negative) Urine Glucose (UA) (Negative) Urine Ketones (Negative) Urine Blood (Negative) Urine Nitrite (Negative) Urine Bilirubin (Negative) Urine Urobilinogen (<2.0) mg/dL Ur Leukocyte Esterase (Negative) Disposition <Jimi Moraes - Last Filed: 01/15/22 16:31> Is patient prescribed a controlled substance at d/c from ED?: No <Tom Jefferson - Last Filed: 01/15/22 17:46> Clinical Impression: Abdominal pain Disposition: HOME SELF-CARE Condition: Good Instructions (If sedation given, give patient instructions): Abdominal Pain (ED) Referrals: None,Stated [Primary Care Provider] - 1-2 days Leah Cee MD [STAFF PHYSICIAN] - 1-2 days
--- NOTE | 2022-01-15 15:43 | US ---
EXAMINATION TYPE: US scrotum with doppler. Grayscale and color Doppler Duplex imaging performed of t he scrotum. DATE OF EXAM: 01/15/2022 COMPARISON: NONE CLINICAL HISTORY: Left testicular pain. Pt states left testicle pain x 1 week EXAM MEASUREMENTS: TESTICLES: Right Testicle: 4.0 x 2.2 x 3.9 cm Left Testicle: 4.1 x 2.0 x 3.3 cm EPIDIDYMIS HEAD: Right Epididymis: 1.1 cm Left Epididymis: 1.1 cm Doppler performed to assess for testicular vascularity; good bilateral color flow and waveforms are s een. Presence of hydroceles: Small amount of fluid bilaterally Presence of varicoceles: No Satisfactory blood flow to bilateral testicles. Small bilateral scrotal fluid collection or hydrocele s. IMPRESSION: No suspicious decreased or increased blood flow to left testicle identified.
[2022-01-15 15:45] LABS: Basophils # (A) 0.1 k/uL (0-0.2); Basophils % (A) 1 %; Eosinophils # (A) 0.4 k/uL (0-0.7); Eosinophils % (A) 7 %; HCT 42.2 % (39.0-53.0); HGB 14.6 gm/dL (13.0-17.5); Lymphocytes # (A) 2.1 k/uL (1.0-4.8); Lymphocytes % (A) 34 %; MCH 33.7 pg (25.0-35.0); MCHC 34.7 g/dL (31.0-37.0); MCV 97.2 fL (80.0-100.0); Mean Platelet Volume 7.6; Monocytes # (A) 0.4 k/uL (0-1.0); Monocytes % (A) 6 %; Neutrophils # (A) 3.1 k/uL (1.3-7.7); Neutrophils % (A) 50 %; Platelet Count 276 k/uL (150-450); RBC 4.34 m/uL (4.30-5.90); RDW 12.6 % (11.5-15.5); WBC 6.2 k/uL (3.8-10.6)
[2022-01-15 16:01] LABS: ALT 12 U/L (4-49); African American GFR (CKD) >90 (>60 ml/min/1.73 sqM); Amylase 45 U/L (30-110); Anion Gap 4 mmol/L; Blood Urea Nitrogen 14 mg/dL (9-20); Calcium 8.5 mg/dL (8.4-10.2); Carbon Dioxide 25 mmol/L (22-30); Chloride 107 mmol/L (98-107); Glucose 86 mg/dL (74-99); Lipase 81 U/L (23-300); Non-African American GFR(CKD) >90 (>60 ml/min/1.73 sqM); Sodium 136 mmol/L (137-145); Total Bilirubin 0.6 mg/dL (0.2-1.3)
--- NOTE | 2022-01-15 16:09 | XR ---
EXAMINATION TYPE: XR KUB DATE OF EXAM: 01/15/2022 4:05 PM CLINICAL HISTORY: Left lower abdominal pain for 3 days TECHNIQUE: Two Upright KUB images of the abdomen are obtained. COMPARISON: CT abdomen and pelvis September 18, 2020. FINDINGS: Scattered gas is seen in non-distended stomach and small bowel loops. Gas is seen in non-di stended colon. Cholecystectomy clips are redemonstrated. Lung bases remain clear. Osseous structures are intact. IMPRESSION: Overall nonobstructive bowel gas pattern.
[2022-01-15 16:16] LABS: AST 36 U/L (17-59); Albumin 4.1 g/dL (3.5-5.0); Alkaline Phosphatase 53 U/L (38-126); Total Protein 6.8 g/dL (6.3-8.2)
[2022-01-15 16:59] LABS: Appearance,Urine Clear (Clear); Bilirubin,Urine Negative (Negative); Blood,Urine Negative (Negative); Color,Urine Yellow; Glucose,Urine (UA) Negative (Negative); Ketones,Urine Negative (Negative); Leukocyte Esterase,Urine Negative (Negative); Nitrite,Urine Negative (Negative); Protein,Urine Negative (Negative); Specific Gravity,Urine 1.019 (1.001-1.035); Urobilinogen,Urine <2.0 mg/dL (<2.0)
--- NOTE | 2022-01-15 17:02 | CT ---
EXAMINATION TYPE: CT abdomen pelvis wo con CT DLP: 642.4 mGycm, Automated exposure control for dose reduction was used. DATE OF EXAM: 01/15/2022 4:44 PM COMPARISON: CT abdomen pelvis most recent from 09/18/2020. CLINICAL INDICATION:Male, 51 years old with history of left groin and testicle pain; LLQ pain TECHNIQUE: Axial CT of the abdomen and pelvis. Sagittal and coronal reformats were created on a [employer] workstation. Contrast used: None Oral contrast used: without Oral Contrast FINDINGS: LOWER CHEST: 4 mm right middle lobe pulmonary nodule stable dating back to 2009. ABDOMEN LIVER: Unremarkable GALLBLADDER AND BILE DUCTS: The gallbladder is surgically absent. PANCREAS: Unremarkable. SPLEEN: Unremarkable. ADRENAL GLANDS: Unremarkable. KIDNEYS AND URETERS: No evidence of hydronephrosis. Right inferior pole renal calculus which is nonob structive.The left kidney has a rotated position within the left renal fossa. There are suspected dup licated left renal collecting system. PELVIS BLADDER: Circumferential bladder wall thickening measuring up to 8 mm. REPRODUCTIVE: Dilated tubular structures are seen in the left inguinal canal and scrotum. ABDOMEN & PELVIS STOMACH AND BOWEL: No evidence of bowel obstruction. Scattered clonic diverticula. PERITONEUM: No evidence of pneumoperitoneum or free fluid. VASCULATURE: No evidence of aortic aneurysm. Atherosclerosis of the arterial vasculature which is mil d. MUSCULOSKELETAL: No acute osseous abnormalities, multilevel disc degeneration changes throughout the spine., Multilevel disc bulging most proximal at L3-L4 and L4-L5. LYMPH NODES: No gross evidence for lymphadenopathy. SOFT TISSUE/ABDOMINAL WALL: Unremarkable IMPRESSION: 1. Suspected left varicocele consider evaluation with scrotal ultrasound for confirmation. No evidenc e for acute intra-abdominal process 2. Circumferential bladder wall thickening correlate with urinalysis for cystitis. 3. Colonic diverticulosis. 4. Nonobstructing right renal calculus. 5. 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
[2022-01-15 18:24] VITALS: BP 147/94; PULSE 57; RESP 16; TEMP 97.9
== END 2022-01-15 18:25 | disposition home or self-care (01) ==
LOC: EC 13:35
DX: R10.9 Unspecified abdominal pain (principal); K21.9 Gastro-esophageal reflux disease without esophagitis; M19.90 Unspecified osteoarthritis, unspecified site; F17.200 Nicotine dependence, unspecified, uncomplicated; Z88.5 Allergy status to narcotic agent; Z79.83 Long term (current) use of bisphosphonates; Z79.899 Other long term (current) drug therapy
CPT/HCPCS: 99285; 36415; 80053; 82150; 83605; 83690; 85025; 81003; 74018; 93975; 76870; 74176; 96374; 96361; J3010

== ENCOUNTER → 2022-05-27 | Outpatient (CLI) | payer BC ==
--- NOTE | 2022-05-27 22:31 | CT ---
EXAMINATION TYPE: CT abdomen pelvis w con DATE OF EXAM: 05/27/2022 COMPARISON: CT abdomen and pelvis May 03, 2022 HISTORY: LLQ pain. Hx of Diverticulitis. CT DLP: 993.4 mGycm, Automated Exposure Control for Dose Reduction was Utilized. CONTRAST: CT scan of the abdomen and pelvis is performed with oral and with IV Contrast, patient injected with 100cc mL of Isovue 300. FINDINGS: LUNG BASES: A thin-walled small cyst in the left lower lobe is partially imaged. Coronary artery calc ification the RCA distribution is redemonstrated. Stable 2 to 3 mm right middle lobe nodule axial katiuska ge 11. LIVER/GB: Cholecystectomy clips are redemonstrated. PANCREAS: No significant abnormality is seen. SPLEEN: No significant abnormality is seen. ADRENALS: No significant abnormality is seen. KIDNEYS: Symmetric cortical medullary uptake and excretion without hydronephrosis seen bilaterally. L ow-lying left kidney with anterior axis is redemonstrated. Occasional benign thin-walled cysts scatte red throughout both kidneys is redemonstrated. BOWEL: Oral contrast reaches level of the mid transverse colon. No suspicious small or large bowel di latation. Mild wall thickening in the left colon extends into the sigmoid colon. A few diverticula in the sigmoid colon are redemonstrated. No surrounding fat stranding seen in current study to suggest acute diverticulitis. PROSTATE/SEMINAL VESICLES: No gross abnormality seen. LYMPH NODES: No greater than 1cm abdominal or pelvic lymph nodes are appreciated. OSSEOUS STRUCTURES: Transitional-type L6 vertebra which is sacralized on the left is redemonstrated. Slight scoliotic curvature is redemonstrated. [id number] axial joint space loss both hips is ag ain seen OTHER: Mild to moderate calcified plaque of the aorta extends into branch vessels. Stable small left greater than right fat-containing bilateral inguinal hernias. IMPRESSION: Possible mild uncomplicated colitis versus product of poor distention. Correlate clinical ly. A few sigmoid colonic diverticula without CT evidence for acute diverticulitis. No significant ch anay from recent CT.
== END | disposition home or self-care (01) ==
LOC: RADCTMAIN 16:45
PROVIDERS: ATTEND Family Medicine
DX: K57.30 Diverticulosis of large intestine without perforation or abscess without bleeding (principal); R10.32 Left lower quadrant pain
CPT/HCPCS: 74177; Q9967